=== PATIENT | male | born 1965 | race Caucasian/White ===

== ENCOUNTER 2017-12-12 08:01 | Day surgery (SDC) | payer OTHER ==
[2017-12-12] MEDS ORDERED: D5 LR 1000 ML 1,000 ML IV ONE (08:18)
[2017-12-12] MEDS ORDERED: DIPRIVAN VIAL 20 ML ONE ×5 (10:08→10:59)
[2017-12-12 12:11] VITALS: BP 148/94
== END 2017-12-12 11:30 | disposition home or self-care (01) ==
LOC: SURG1 08:01
PROVIDERS: ATTEND Internal Medicine Gastroenterology
PROC: 0DBM8ZX Excision of Descending Colon, Via Natural or Artificial Opening Endoscopic, Diagnostic (ICD-10-PCS; principal; 2017-12-12 10:30)
PROC: 0DJD8ZZ Inspection of Lower Intestinal Tract, Via Natural or Artificial Opening Endoscopic (ICD-10-PCS; principal; 2017-12-12 10:30)
PROC: 0W3P8ZZ Control Bleeding in Gastrointestinal Tract, Via Natural or Artificial Opening Endoscopic (ICD-10-PCS; principal; 2017-12-12 10:30)
PROC: 0DBL8ZX Excision of Transverse Colon, Via Natural or Artificial Opening Endoscopic, Diagnostic (ICD-10-PCS; principal; 2017-12-12 10:30)
PROC: 0DBN8ZX Excision of Sigmoid Colon, Via Natural or Artificial Opening Endoscopic, Diagnostic (ICD-10-PCS; principal; 2017-12-12 10:30)
PROC: 3E0H8GC Introduction of Other Therapeutic Substance into Lower GI, Via Natural or Artificial Opening Endoscopic (ICD-10-PCS; principal; 2017-12-12 10:30)
DX: Z12.11 Encounter for screening for malignant neoplasm of colon (principal); K92.1 Melena; K63.5 Polyp of colon; Q27.33 Arteriovenous malformation of digestive system vessel; K64.0 First degree hemorrhoids; D12.4 Benign neoplasm of descending colon; D12.3 Benign neoplasm of transverse colon
CPT/HCPCS: A4217; J3490; J7120